=== PATIENT | female | born 1975 | race African-American/Black ===

== ENCOUNTER → 2017-07-05 | Emergency (ER) | payer OTHER ==
[~2017-07-05] VITALS: Ht 162.6 cm; Wt 88.9 kg
[~2017-07-05] MED LIST: ASA-EC81 MG PO; DOXEPIN HCL10 MG; KETO10TA2 PO; LEVSIN/SL0.125 MG SL; NEURONTIN600 MG; ORPH100T PO; PEPCID40 MG PO; PHENERGAN25 MG PO; PREDNISONE20 MG PO
== END | disposition home or self-care (01) ==
LOC: ER 06:01
DX: K29.70 Gastritis, unspecified, without bleeding (principal)

== ENCOUNTER → 2017-08-19 | Emergency (ER) | payer OTHER | END | disposition home or self-care (01) | LOC: ER 08:37 | DX: R05 Cough (principal); J11.1 Influenza due to unidentified influenza virus with other respiratory manifestations ==

== ENCOUNTER 2018-06-06 17:31 | Emergency (ER) | payer OTHER ==
[~2018-06-06] VITALS: Ht 165.1 cm; Wt 79.4 kg
[~2018-06-06 17:31] MED LIST changes: +DOLOGESIC 500-1 EACH; +ZANTAC300 MG
== END 2018-06-06 20:41 | disposition home or self-care (01) ==
LOC: ER 17:31
DX: G43.809 Other migraine, not intractable, without status migrainosus (principal); R07.89 Other chest pain

== ENCOUNTER 2019-07-17 23:06 | Emergency (ER) | payer OTHER ==
[~2019-07-17] VITALS: Ht 162.6 cm; Wt 90.7 kg
[2019-07-18] MEDS ORDERED: PEPCID40 MG PO (06:37)
[2019-07-18] MEDS ORDERED: DOLOGESIC 500-1 EACH PO (06:37)
== END 2019-07-18 06:49 | disposition home or self-care (01) ==
LOC: ER 23:06
DX: K29.70 Gastritis, unspecified, without bleeding (principal); R07.89 Other chest pain

== ENCOUNTER 2022-07-21 11:11 | Emergency (ER) | payer OTHER ==
[~2022-07-21] VITALS: Ht 162.6 cm; Wt 90.7 kg
[~2022-07-21 11:11] MED LIST changes: +DOLOGESIC 500-1 EACH PO
[2022-07-21] MEDS ORDERED: PEPCID AC20 MG PO (11:58)
[2022-07-21] MEDS ORDERED: ZESTRIL5 MG PO (11:58)
== END 2022-07-21 15:59 | disposition home or self-care (01) ==
LOC: ER 11:11
DX: B34.9 Viral infection, unspecified (principal); R05.3 Chronic cough; Z20.822 Contact with and (suspected) exposure to COVID-19; Z88.0 Allergy status to penicillin; I10 Essential (primary) hypertension

== ENCOUNTER 2023-05-27 05:20 | Emergency (ER) | payer OTHER ==
[~2023-05-27] VITALS: Ht 162.6 cm; Wt 92.5 kg
[~2023-05-27 05:20] MED LIST changes: +PEPCID AC20 MG PO; +ZESTRIL5 MG PO
== END 2023-05-27 06:29 | disposition home or self-care (01) ==
LOC: ER 05:20
DX: M77.8 Other enthesopathies, not elsewhere classified (principal); Z88.0 Allergy status to penicillin
CPT/HCPCS: 96372; 99284; J1100; J1885

== ENCOUNTER 2024-04-07 18:18 | Emergency (ER) | payer OTHER ==
[~2024-04-07] VITALS: Ht 170.2 cm; Wt 86.2 kg
[2024-04-07] MEDS ORDERED: SUMATRIPTAN SUCCINATE 6 MG/0.5 ML VIAL SUBCUTANEO ONE (19:15)
[2024-04-07] MEDS ORDERED: ONDANSETRON HCL 2 MG/ML VIAL IV ONE (19:15)
[2024-04-07] MEDS ORDERED: KETOROLAC TROMETHAMINE 30 MG VIAL IV ONE (19:15)
== END 2024-04-07 20:28 | disposition home or self-care (01) ==
LOC: ER 18:20
DX: G43.909 Migraine, unspecified, not intractable, without status migrainosus (principal); Z88.0 Allergy status to penicillin

== ENCOUNTER 2024-05-29 09:05 | Emergency (ER) | payer OTHER ==
[~2024-05-29] VITALS: Ht 162.6 cm; Wt 90.7 kg
[2024-05-29 14:39] LABS: HEMATOCRIT 42.6 % (36.0-45.00); HEMOGLOBIN 13.6 g/dL (12.0-15.00); MEAN CORPUSCULAR HEMOGLOBIN 26.3 pg (27.00-32.0); PLATELET COUNT 303 K/uL (150-450); RED BLOOD COUNT 5.19 M/uL (4.00-6.00); RED CELL DISTRIBUTION WIDTH 15.3 % (11.5-14.5)
== END 2024-05-29 16:11 | disposition home or self-care (01) ==
LOC: ER 09:07
DX: B34.9 Viral infection, unspecified (principal); R53.81 Other malaise; Z20.822 Contact with and (suspected) exposure to COVID-19; I10 Essential (primary) hypertension; Z88.0 Allergy status to penicillin

== ENCOUNTER 2024-09-28 03:33 | Emergency (ER) | payer OTHER ==
[~2024-09-28] VITALS: Ht 162.6 cm; Wt 94.3 kg
[2024-09-28] MEDS ORDERED: AMLODIPINE BESYL5 MG PO (03:54)
[2024-09-28] MEDS ORDERED: PROMETHAZINE HCL 50 MG/ML AMPUL IM STA (04:08)
[2024-09-28] MEDS ORDERED: ORPHENADRINE CITRATE 30 MG/ML AMPUL IV STA (04:08)
[2024-09-28] MEDS ORDERED: KETOROLAC TROMETHAMINE 30 MG VIAL IV STA (04:08)
[2024-09-28] MEDS ORDERED: KETOROLAC TROMETHAMINE 30 MG VIAL ONE (04:10)
[2024-09-28] MEDS ORDERED: PROMETHAZINE HCL 50 MG/ML AMPUL IM ONE (04:11)
[2024-09-28] MEDS ORDERED: ORPHENADRINE CITRATE 30 MG/ML AMPUL ONE (04:11)
[2024-09-28] MEDS ORDERED: DEXTROSE 5 % IN WATER 500 ML IV ONE (04:15)
[2024-09-28] MEDS ORDERED: ESGIC 50-325-41 EACH PO (06:20)
== END 2024-09-28 06:41 ==
LOC: ER 03:34
DX: G43.909 Migraine, unspecified, not intractable, without status migrainosus (principal); I10 Essential (primary) hypertension; Z88.0 Allergy status to penicillin